=== PATIENT | female | born 1980 | race Caucasian/White ===

== ENCOUNTER 2021-04-02 13:44 | Outpatient (CLI) | payer OTHER ==
[2021-04-02 14:03] LABS: BASOPHILS % (AUTO) 1 % (0-1); EOSINOPHILS % (AUTO) 1 % (1-7); LYMPHOCYTES % (AUTO) 27 % (22-44); MEAN CORPUSCULAR HEMOGLOBIN 27.5 pg (27.0-34.8); MEAN PLATELET VOLUME 8.9 fL (7.4-10.4); MONOCYTES % (AUTO) 9 % (2-9); NEUTROPHILS % (AUTO) 63 % (42-75); PLATELET COUNT 268 x10^3/uL (130-400); RED BLOOD COUNT 4.67 x10^6/uL (3.82-5.3); RED CELL DISTRIBUTION WIDTH 14.2 % (9.6-15.2)
[2021-04-02 14:13] LABS: ANION GAP 6 mmol/L (5-15); CALCIUM 9.2 mg/dL (8.5-10.1); CHLORIDE 108 mmol/L (98-107); CREATININE 0.87 mg/dL (0.55-1.02)
[2021-04-02 15:22] LABS: MICROSCOPIC NOT IND
== END 2021-04-02 23:59 | disposition home or self-care (01) ==
LOC: LAB 13:44
PROVIDERS: ATTEND Obstetrics & Gynecology Reproductive Endocrinology
DX: Z01.812 Encounter for preprocedural laboratory examination (principal); E10.9 Type 1 diabetes mellitus without complications
CPT/HCPCS: 36415; 80048; 81003; 84702; 85025